=== PATIENT | male | born 1970 ===

== ENCOUNTER 2017-06-11 15:05 | Emergency (ER) | payer BC ==
[2017-06-11 15:35] VITALS: BP 160/106
--- NOTE | 2017-06-16 19:11 | UC ---
Skin Complaint HPI - HPI Summary HPI Summary: 47 YEAR OLD MALE PRESENTS WITH LEFT ABDOMINAL RASH . - History of Current Complaint Chief Complaint: UCSkin Time Seen by Provider: 06/11/17 15:26 Stated Complaint: SKIN COMPLAINT,ABD PAIN Hx Obtained From: Patient Onset/Duration: Sudden Onset Skin Exposure Onset/Duration: Days Ago Onset Severity: Moderate Current Severity: Moderate Pain Intensity: 2 Pain Scale Used: 0-10 Numeric - Allergy/Home Medications Allergies/Adverse Reactions: Allergies Allergy/AdvReac Type Severity Reaction Status Date / Time No Known Allergies Allergy Verified 06/11/17 15:36 Home Medications: Home Medications ALPRAZolam TAB* [Xanax TAB*] 0.25 mg PO Q12H PRN 06/11/17 [History Confirmed ] Review of Systems Constitutional: Negative Skin: Rash Eyes: Negative ENT: Negative Respiratory: Negative Cardiovascular: Negative Gastrointestinal: Negative Genitourinary: Negative Motor: Negative Neurovascular: Negative Musculoskeletal: Negative Neurological: Negative Psychological: Negative All Other Systems Reviewed And Are Negative: Yes PMH/Surg Hx/FS Hx/Imm Hx - Surgical History Surgical History: Yes - Social History Alcohol Use: Weekly Alcohol Amount: 10 Substance Use Type: None Smoking Status (MU): Former Smoker Physical Exam Triage Information Reviewed: Yes Vital Signs: Initial Vital Signs Temp 37.7 C 06/11/17 15:19 Pulse 95 06/11/17 15:19 Resp 18 06/11/17 15:19 BP 160/106 06/11/17 15:19 Vital Signs Reviewed: Yes Eye Exam: Normal ENT Exam: Normal Dental Exam: Normal Neck exam: Normal Neck: Positive: 1 Respiratory Exam: Normal Cardiovascular Exam: Normal Abdominal Exam: Normal Musculoskeletal Exam: Normal Neurological Exam: Normal Psychological Exam: Normal Skin: Positive: rashes - LEFT SIDED ABDOMNAL RASH Course/Dx - Diagnoses Provider Diagnoses: LEFT ABDOMINAL SHINGLES Discharge - Discharge Plan Condition: Stable Disposition: HOME Prescriptions: Acyclovir [Zovirax 800 MG] 800 mg PO .5ID 7 Days #35 tab Capsaicin 0.025% CREAM* [Zostrix 0.025% CREAM*] 1 applic TOPICAL BID #1 tu predniSONE TAB* [Deltasone TAB*] 40 mg PO DAILY #10 tab Patient Education Materials: Shingles (ED) Referrals: Gallo Zabala DO [Primary Care Provider] -
== END 2017-06-11 15:50 | disposition home or self-care (01) ==
LOC: UCCORT 15:05
DX: B02.9 Zoster without complications (principal); Z87.891 Personal history of nicotine dependence
CPT/HCPCS: 93005; 99202; G0463

== ENCOUNTER 2017-06-19 07:10 | Emergency (ER) | payer BC ==
[2017-06-19 07:23] VITALS: BP 132/84
--- NOTE | 2017-06-19 07:29 | UC ---
Lower Extremity/Ankle HPI - HPI Summary HPI Summary: Pt presents with discomfort in his bilatleral feet, ankles and knees progressive from yesterday. Pt denies trauma, change in activity or change in footwear. Pt states on Thu finished Rx acyclovir and had been on prednisone for shingles. Pt denies fevers, chills, rash. No swelling. No temp change. No cp, sob, abd pain. No changes in appetitie, vision. No CAMARENA no other complaints. pt took motrin 200mg x 1 dose with little relief. Pt's medication reviewed this visit - History of Current Complaint Chief Complaint: UCLowerExtremity Stated Complaint: BILATERAL FOOT/ANKLE/KNEES Time Seen by Provider: 06/19/17 07:11 Hx Obtained From: Patient, Medical Records Onset/Duration: Gradual Onset, Lasting Hours Severity Initially: Mild Severity Currently: Moderate Pain Intensity: 7 Pain Scale Used: 0-10 Numeric Aggravating Factor(s): Standing, Ambulation Alleviating Factor(s): Nothing Able to Bear Weight: Yes - Allergies/Home Medications Allergies/Adverse Reactions: Allergies Allergy/AdvReac Type Severity Reaction Status Date / Time No Known Allergies Allergy Verified 06/19/17 07:23 Home Medications: Home Medications Ibuprofen TAB* [Advil TAB*] 200 mg PO Q6H PRN 06/19/17 [History Confirmed ] PMH/Surg Hx/FS Hx/Imm Hx Previously Healthy: Yes - Surgical History Surgical History: None - Family History Known Family History: Positive: None - Social History Occupation: Employed Full-time Lives: With Family Alcohol Use: Weekly Alcohol Amount: 10 Substance Use Type: None Smoking Status (MU): Former Smoker Review of Systems Constitutional: Negative Skin: Negative Musculoskeletal: Other: - feet, ankle, knee pain b/l All Other Systems Reviewed And Are Negative: Yes Physical Exam Triage Information Reviewed: Yes Appearance: Well-Appearing, No Pain Distress, Well-Nourished Vital Signs: Initial Vital Signs Temp 98.4 F 06/19/17 07:18 Pulse 87 06/19/17 07:18 Resp 16 06/19/17 07:18 BP 132/84 06/19/17 07:18 Pulse Ox 100 06/19/17 07:18 Vital Signs Reviewed: Yes Eye Exam: Normal Eyes: Positive: Conjunctiva Clear ENT Exam: Normal ENT: Positive: Normal ENT inspection, Pharynx normal, TMs normal Dental Exam: Normal Neck exam: Normal Neck: Positive: Supple, Nontender, No Lymphadenopathy Respiratory Exam: Normal Respiratory: Positive: Chest non-tender, Lungs clear, Normal breath sounds, No respiratory distress, No accessory muscle use Cardiovascular Exam: Normal Cardiovascular: Positive: RRR, No Murmur, Pulses Normal, Other: - 2+ DP, PT CBT < 2 sec no edema ext Abdominal Exam: Normal Abdomen Description: Positive: Nontender, No Organomegaly, Soft Bowel Sounds: Positive: Present Musculoskeletal: Positive: Strength Intact - pt amb with slight limp + flex/ext ankle knee without discomfort no joint edema, warmth, erythema No discomfort with palpation of joints, ROM Intact, No Edema, Other: Neurological Exam: Normal Neurological: Positive: Alert Psychological Exam: Normal Skin: Positive: rashes - resolving shingles left flank - scabbed lesions, no tender. no drainage, no vesicles Lower Extremity Course/Dx - Course Course Of Treatment: Pt presents with progressive feet, ankle and knee pain since yesterday.Pt without trauma. VSS. nonconcerning exam - no focal findings to joint. suspect related to recent tx shingles acycolvir and pred. will start pred taper. motrin. hydrate. cautioned pt regarding motrin and pred - take with food, avoid taking together, hydrate. d/w pt to ED for increased pain, fevers, edema, rash, petechia. contact PCP for recheck next week. Pt understanding and agreement of plan - Differential Dx/Diagnosis Provider Diagnoses: arthralgia. likely medication reaction Discharge - Discharge Plan Condition: Stable Disposition: HOME Prescriptions: predniSONE TAB* [Deltasone TAB*] 40 mg PO DAILY #11 tab Patient Education Materials: Adverse Drug Reaction (ED), Arthralgia (ED) Referrals: Gallo Zabala DO [Primary Care Provider] - Additional Instructions: The doctor that evaluated you today thinks your pain is related to the recent antiviral medication used to treat your shingles. The following are recommended: - Take prednisone taper as prescribed until gone. Take with food - Okay to take Ibuprofen (Advil, Motrin) 400mg every 6 hours for pain. You may also take Tylenol (acetaminophen) every 6 hours for pain. It is very important you take both prednisone and ibuprofen with food. do not take at the same time Drink plenty of water - both of these medications are filtered through your kidneys - avoid excess caffeine and alcohol Contact your doctor to schedule a follow-up appointment early next week. If you develop progression of your symptoms, bruising, bleeding, leg swelling or ANY other concerns it is strongly recommended you go to the emergency department for blood work or contact your doctor
== END 2017-06-19 07:55 | disposition home or self-care (01) ==
LOC: UCCORT 07:10
DX: M25.572 Pain in left ankle and joints of left foot (principal); M25.571 Pain in right ankle and joints of right foot; M25.562 Pain in left knee; M25.561 Pain in right knee; Z87.891 Personal history of nicotine dependence
CPT/HCPCS: 99212; G0463